=== PATIENT | female | born 1990 | race Caucasian/White ===

== ENCOUNTER 2022-06-10 09:25 | Emergency (ER) | payer BC ==
[~2022-06-10] VITALS: Ht 165.1 cm; Wt 68.0 kg
[2022-06-10] MEDS ORDERED: ALBUTEROL SULFATE 2.5 MG/3 ML NEBU NEB ONE (10:15)
[2022-06-10] MEDS ORDERED: ALBUTEROL SULFATE 2.5 MG/3 ML NEBU ONE (10:31)
[2022-06-10] MEDS ORDERED: BENZ-13 PO (11:15)
--- NOTE | 2022-06-10 11:25 | NUR ---
pt came in with a cough pt stable being discharged with medication pt requesting a doctors note - not given informed pt to return in symptoms worse. pt verbalized understanding. signed discharge paperwork.
== END 2022-06-10 11:58 | disposition home or self-care (01) ==
LOC: ER 09:25
DX: B34.9 Viral infection, unspecified (principal); R05.9 Cough, unspecified; Z88.0 Allergy status to penicillin; Z88.2 Allergy status to sulfonamides; Z86.16 Personal history of COVID-19; R03.0 Elevated blood-pressure reading, without diagnosis of hypertension
CPT/HCPCS: 71045; A4663